=== PATIENT | female | born 1990 | race Caucasian/White ===

== ENCOUNTER 2017-01-22 17:32 | Emergency (ER) | payer OTHER ==
[~2017-01-22] VITALS: Ht 160 cm; Wt 56.7 kg
--- NOTE | 2017-01-22 18:50 | ED AMS/SEIZURE/WEAK/DIZZY ---
History of Present Illness General Chief Complaint: Dizziness Stated Complaint: DIZZY Source: patient Exam Limitations: no limitations Vital Signs & Intake/Output Vital Signs & Intake/Output Vital Signs Date Time Temp Pulse Resp B/P B/P Pulse O2 O2 Flow FiO2 Mean Ox Delivery Rate 01/22 2102 96.8 72 18 123/70 100 Room Air 01/22 1753 97.5 81 20 129/75 98 Room Air ED Intake and Output 01/23 0000 01/22 1200 Intake Total 0 Output Total Balance 0 Intake, Oral 0 Patient 125 lb Weight Weight Estimated Measurement Method Allergies Coded Allergies: No Known Allergies (01/22/17) Reconcile Medications Clonazepam 0.5 MG TABLET 1 TAB PO BIDP PRN ANXIETY (Reported) Meclizine HCl 25 MG TABLET 1 TAB PO TIDPRN PRN VERTIGO Scopolamine Hydrobromide (Transderm-Scop) 1.5MG/3DAY PATCH.TD.3 1 PAT TOP Q3D VERTIGO apply to the hairless area behind 1 ear at least 4 hours before effect is required; reapply every 3 days as needed Triage Note: PT TO ED C/O DIZZINESS X 1 WEEK. STATES SHE ALMOST PASSED OUT YESTERDAY. STATES SHE IS OK IN THE AM AND THE DAY GOES ON SHE FEELS WORSE. CURRENTLY HAS MENSES. Triage Nurses Notes Reviewed? yes Onset: Abrupt Duration: intermittent Timing: recent history Severity: moderate Severity Numbers: 5 : No Patient currently breastfeeds: No HPI: Patient is a 26-year-old female with a past medical history of anxiety who takes Klonopin as directed for her symptoms who presents emergency room with a 2-1/2 week history of symptoms of room spinning sensation that's made worse with head and body movements blurred vision associated nausea palpitations and dizziness. Patient states that the room spinning sensation always onsets the associated symptoms as stated above. Patient currently at rest has no complaints. Patient has also mild grade headache and photophobia. Patient denies any new specific stressors. No oral contraceptive use. Denies any fever chills neck pain back pain shortness of breath abdominal pain paresthesia Patient currently is menstruating (GERARDO LAINEZ) Past History Travel History Traveled to [place] past 21 day No Medical History Any Pertinent Medical History? see below for history Psychiatric: anxiety Surgical History Surgical History: non-contributory Psychosocial History What is your primary language Japanese Tobacco Use: Never used ETOH Use: denies use Illicit Drug Use: denies illicit drug use Family History Hx Contributory? No (GERARDO LAINEZ) Review of Systems Review of Systems Constitutional: Reports: no symptoms. EENTM: Reports: see HPI. Respiratory: Reports: no symptoms. Cardiovascular: Reports: no symptoms. GI: Reports: see HPI, nausea. Denies: abdominal pain. Genitourinary: Reports: no symptoms. Musculoskeletal: Reports: no symptoms. Skin: Reports: no symptoms. Neurological/Psychological: Reports: no symptoms. Hematologic/Endocrine: Reports: no symptoms. Immunologic/Allergic: Reports: no symptoms. All Other Systems: Reviewed and Negative (GERARDO LAINEZ) Physical Exam Physical Exam General Appearance: no apparent distress, alert Comments: Well-developed well-nourished person in no acute distress HEENT: extraocular motion intact, no nystagmus. Pupils, round and reactive to light and accommodation. Nose is atraumatic. External auditory canal and Tympanic membranes clear. Pharynx normal. No swelling or edema. Neck: Supple, no lymphadenopathy, normal range of motion without pain or tenderness Back: Nontender, no CVA tenderness. Cardiovascular: Regular rate and rhythms no murmurs rubs or gallops, normal JVP Respiratory: Chest nontender. No respiratory distress.breath sounds clear to auscultation bilaterally Abdomen: Soft, nontender nondistended, no appreciable organomegaly. Normal bowel sounds. No ascites Extremity: No edema, no calf tenderness to palpation, normal and equal pulses. Neuro: Alert oriented x3, motor sensory normal, cranial nerves II through XII grossly intact. Positive modified Laura-Hallpike Negative Romberg negative cerebellar testing Skin: No appreciable rash on exposed skin, skin is warm and dry. Psych: Mood and affect is normal, memory and judgment is normal. Core Measures ACS in differential dx? No CVA/TIA Diagnosis: No Severe Sepsis Present: No Septic Shock Present: No (GERARDO LAINEZ) Progress Differential Diagnosis: arrythmia, alcohol intoxication, anemia, benign positional vertigo, CVA/stroke, dehydration, drug intoxication, encephalitis, electrolyte imbalance, GI bleed, hypoglycemia, hypoxia, intracranial Hem., intracranial mass/tumor, labrynthitis, meningitis, Meniere's disease, migraine CANO, multiple sclerosis, pneumonia, postural hypotension, presyncope, post- traumatic vertigo, sepsis, seizure disorder, subarachnoid Hem., UTI/pyelo, vertebrobasilar insuff Plan of Care: Orders Procedure Date/time Status URINE DRUG SCREEN FOR ER ONLY 01/22 1850 Complete URINALYSIS 01/22 1850 Complete THYROID STIMULATING HORMONE 01/22 1850 Complete MAGNESIUM 01/22 1850 Complete HUMAN BETA HCG SCREEN 01/22 1850 Complete FREE T4 01/22 1850 Complete COMPREHENSIVE METABOLIC PANEL 01/22 1850 Complete CBC WITHOUT DIFFERENTIAL 01/22 1850 Complete EKG 01/22 1757 Active Laboratory Tests 01/22/171910: Anion Gap 11, Estimated GFR > 60, BUN/Creatinine Ratio 10.0, Glucose 82, Calcium 9.8, Magnesium 2.2, Total Bilirubin 0.3, AST 30, ALT 52, Alkaline Phosphatase 63 , Total Protein 7.8, Albumin 4.8, Globulin 3.0, Albumin/Globulin Ratio 1.6, TSH 2.560, Free T4 1.03, Total Beta HCG NEGATIVE, CBC w Diff NO MAN DIFF REQ, RBC 4.61, MCV 92.0, MCH 31.4 H, RDW 12.6, MPV 8.9, Gran % 38.6 L, Lymphocytes % 49.2, Monocytes % 9.2, Eosinophils % 2.3, Basophils % 0.7, Absolute Granulocytes 2.2, Absolute Lymphocytes 2.8, Absolute Monocytes 0.5, Absolute Eosinophils 0.1, Absolute Basophils 0, PUBS MCHC 34.1, Urine Opiates Screen < 100.00, Methadone Screen < 40, Barbiturate Screen < 60, Ur Phencyclidine Scrn < 6.00, Amphetamines Screen < 100, U Benzodiazepines Scrn < 85, Urine Cocaine Screen < 50, Urine Cannabis Screen < 5.00, Urine Color PINK H, Urine Clarity CLDY H, Urine pH 8.0 , Ur Specific [place] 1.015, Urine Protein NEG, Urine Ketones NEG, Urine Nitrite NEG, Urine Bilirubin NEG, Urine Urobilinogen 0.2, Ur Leukocyte Esterase NEG, Ur Microscopic SEDIMENT EXAMINED, Urine RBC >75 H, Urine WBC RARE, Ur Epithelial Cells RARE, Urine Bacteria RARE H, Urine Hemoglobin LARGE H, Urine Glucose NEG Patient currently is resting comfortably at bedside. Patient ambulated down the hallway normal steady gait. Patient's CT scan EKG and blood work was unremarkable. Patient had reproducible symptoms and upon head movement and which patient has symptoms most concerning for positional vertigo. Patient was administered meclizine and scopolamine where she states that she has significant resolution of her presenting complaints. Patient was strongly advised to follow -up with ENT and her primary care doctor and her psychiatrist patient was given all blood work and copies of CT scan. (GERARDO LAINEZ) Diagnostic Imaging: Viewed by Me: CT Scan. Radiology Impression: no acute abnormality, no fracture Initial ED EKG: normal p-waves, normal QRS complex Comments: PATIENT: MIMI AGUILAR PRESENT AGE: 26 PATIENT ACCOUNT NO: [id number] : 92 LOCATION: [facility] ORDERING PHYSICIAN: GERARDO XIAO SERVICE DATE: 01/22/17 EXAM TYPE: CAT - CT HEAD WO IV CONTRAST EXAMINATION: CT HEAD WITHOUT CONTRAST CLINICAL INFORMATION: Dizziness. Pupil asymmetry. COMPARISON: No relevant prior studies are available for comparison. TECHNIQUE: Contiguous axial imaging was performed from the skull base to vertex without intravenous administration of contrast. DLP: 534.66 mGy-cm. FINDINGS: There is no evidence of acute intracranial hemorrhage or territorial infarction. No abnormal mass effect or midline shift is seen. Mathias to white matter differentiation is well preserved. No extra-axial fluid collections are identified. The ventricles are normal in size. There is no abnormal attenuation within the brain parenchyma. The osseous structures and soft tissues are normal. The mastoid air cells and visualized portions of the paranasal sinuses are well aerated. IMPRESSION: No intracranial hemorrhage or mass effect. DICTATED BY: LIVAN MARTÍNEZ MD DATE/TIME DICTATED:01/22/171951 FUEL YARD OPERATOR:AUSTIN (GERARDO LAINEZ) Departure Departure Disposition: HOME OR SELF CARE Condition: Stable Clinical Impression Primary Impression: Vertigo Secondary Impressions: Anxiety Referrals: JESE BOYCE,LUCILLE GANDARA MD,HOLLY Ayala (PCP/Family) Additional Instructions: As discussed continue home medications as directed. If symptoms worsen return to emergency room. Begin the prescription is scopolamine and meclizine for your symptoms, prescriptions waiting at [facility] pharmacy. If symptoms worsen return to emergency room. Follow-up with your primary care doctor and/or psychiatrist this week and provide them with copies of blood work and imaging provided in the emergency room today. If symptoms still continue in 2 days follow-up with ENT Dr. Willard for further evaluation treatment Departure Forms: Customer Survey General Discharge Information Prescriptions: Current Visit Scripts Meclizine HCl 1 TAB PO TIDPRN PRN VERTIGO #21 TAB Scopolamine Hydrobromide (Transderm-Scop) 1 PAT TOP Q3D #4 PAT apply to the hairless area behind 1 ear at least 4 hours before effect is required; reapply every 3 days as needed (JENIFER XIAO,GERARDO) PA/NETWORK INTELLIGENCE ANALYST Co-Sign Statement Statement: ED Attending supervision documentation- [] I saw and evaluated the patient. I have also reviewed all the pertinent lab results and diagnostic results. I agree with the findings and the plan of care as documented in the PA's/NETWORK INTELLIGENCE ANALYST's documentation. [x] I have reviewed the ED Record and agree with the PA's/NETWORK INTELLIGENCE ANALYST's documentation. [] Additions or exceptions (if any) to the PAs/NETWORK INTELLIGENCE ANALYST's note and plan are summarized below: [] (SEDRICK BOYCE,KRISTI Gallo)
[2017-01-22] MEDS ORDERED: CLONAZEPAM0.5 M2 PO (18:55)
[2017-01-22 19:29] LABS: ABSOLUTE BASOPHIL COUNT 0 /CUMM (0.0-0.2); ABSOLUTE EOSINOPHIL COUNT 0.1 /CUMM (0.0-0.7); ABSOLUTE GRANULOCYTE CT 2.2 /CUMM (1.4-6.5); ABSOLUTE LYMPH COUNT 2.8 /CUMM (1.2-3.4); ABSOLUTE MONOCYTE COUNT 0.5 /CUMM (0.10-0.60); BASOPHIL % 0.7 % (0.0-2.0); EOSINOPHIL % 2.3 % (0-5); GRANULOCYTE % 38.6 % (42.2-75.2); HEMATOCRIT 42.4 % (37-47); MEAN CORPUSCULAR HGB 31.4 PG (27.0-31.0); MEAN CORPUSCULAR HGB CONC 34.1 G/DL (33.0-37.0); MEAN PLATELET VOLUME 8.9 FL (7.4-10.4); PLATELET COUNT 239 /CUMM (130-400); RBC DISTRIBUTION WIDTH 12.6 % (11.5-14.5); RED BLOOD CELL CT 4.61 /CUMM (4.20-5.40); WHITE BLOOD CELL COUNT 5.7 /CUMM (4.8-10.8)
--- NOTE | 2017-01-22 20:04 | CT SCAN REPORT ---
EXAMINATION: CT HEAD WITHOUT CONTRAST CLINICAL INFORMATION: Dizziness. Pupil asymmetry. COMPARISON: No relevant prior studies are available for comparison. TECHNIQUE: Contiguous axial imaging was performed from the skull base to vertex without intravenous administration of contrast. DLP: 534.66 mGy-cm. FINDINGS: There is no evidence of acute intracranial hemorrhage or territorial infarction. No abnormal mass effect or midline shift is seen. Mathias to white matter differentiation is well preserved. No extra-axial fluid collections are identified. The ventricles are normal in size. There is no abnormal attenuation within the brain parenchyma. The osseous structures and soft tissues are normal. The mastoid air cells and visualized portions of the paranasal sinuses are well aerated. IMPRESSION: No intracranial hemorrhage or mass effect.
[2017-01-22] MEDS ORDERED: MECLIZINE HCL25 MG PO (20:54)
[2017-01-22] MEDS ORDERED: TRANSDERM-SCOP1 EACH TOP (20:54)
[2017-01-22 21:02] VITALS: BP 123/70
== END 2017-01-22 21:06 ==
LOC: ERH 17:32
PROVIDERS: Physician Assistant
DX: R42 Dizziness and giddiness (principal); F41.9 Anxiety disorder, unspecified
CPT/HCPCS: 80307; 81001; 93005; 93010